=== PATIENT | male | born 1960 | race Two or more races ===

== ENCOUNTER 2018-09-14 18:12 | Emergency (ER) | payer SELFPAY ==
[~2018-09-14] VITALS: Ht 170.2 cm; Wt 117.9 kg
[~2018-09-14 18:12] MED LIST: METF-371 PO; METH10T PO; NOR10T PO
[2018-09-14 18:34] VITALS: BP 133/71
== END 2018-09-14 20:59 | disposition left against medical advice (07) ==
LOC: EDUNIT# 18:12 → EDBD 18:12 → ER 18:12
DX: M54.9 Dorsalgia, unspecified (principal); Z53.21 Procedure and treatment not carried out due to patient leaving prior to being seen by health care provider